=== PATIENT | female | born 1985 | race Caucasian/White ===

== ENCOUNTER 2017-02-11 10:04 | Emergency (ER) | payer BC, OTHER ==
[~2017-02-11] VITALS: Ht 157.5 cm; Wt 51.0 kg
[~2017-02-11 10:04] MED LIST: Z.0.BCPILL PO
[2017-02-11 10:22] VITALS: BP 141/102; PULSE 89; RESP 16; TEMP 98.3; O2SAT 100
--- NOTE | 2017-02-11 10:52 | PD ---
HPI Chief Complaint: Abdominal Pain Time Seen by Provider: 10:37 Travel History International Travel<30 days: No Contact w/Intl Traveler<30days: No Traveled to known affect area: No History of Present Illness HPI 31-year-old female complains of right low quadrant abdominal pain, abdominal bloating, and poor appetite. Patient started having left low quadrant abdominal pain about week ago. Patient was seen at local urgent care center and diagnosed with UTI. Patient was given prescription for Bactrim DS for 3 days. Patient states that she felt better and then started having right low quadrant abdominal pain right-sided pelvic pain for the past 3 days. Patient states that her menstruation period started 3 days ago and about to stop. Patient states abdominal pain is dull achy pain with occasionally sharp pain localized to right low quadrant right pelvic area. Patient states that the pain radiated to the back. Patient states that she has intermittent nausea vomiting with the pain. Patient denies any fever chills. Patient denies any dysuria or frequency. Patient denies any vaginal discharge. Patient states that she had unprotected sex on January 04 and took a Plan B on January 05. Patient states that she has irregular vaginal bleeding intermittent since then PFSH Past Medical History Diabetes: No Diminished Hearing: No Immunizations Current: No ?: Not Menopausal: No : 0 Past Surgical History Eye Surgery: Yes Tonsillectomy: Yes Other Surgery: Yes (r knee) Social History Alcohol Use: Yes (occasionally) Tobacco Use: No Substance Use: Yes Allergies-Medications (Allergen,Severity, Reaction): Coded Allergies: No Known Allergies (Unverified , 02/11/17) Reported Meds & Prescriptions Reported Meds & Active Scripts Active [place] (Hydrocodone-Acetaminophen) 5-325 mg Tab 1 Tab PO Q6H PRN Doxycycline Hyclate 100 Mg Tab 100 Mg PO BID Review of Systems General / Constitutional: No: Fever Eyes: No: Visual changes HENT: No: Headaches Cardiovascular: No: Chest Pain or Discomfort Respiratory: No: Shortness of Breath Gastrointestinal: Positive: Nausea, Vomiting, Abdominal Pain Genitourinary: No: Dysuria Musculoskeletal: No: Pain Skin: No Rash Neurologic: No: Weakness Psychiatric: No: Depression Endocrine: No: Polydipsia Hematologic/Lymphatic: No: Easy Bruising Physical Exam Narrative GENERAL: Well-nourished, well-developed patient. SKIN: Focused skin assessment warm/dry. HEAD: Normocephalic. EYES: No scleral icterus. No injection or drainage. NECK: Supple, trachea midline. No JVD or lymphadenopathy. CARDIOVASCULAR: Regular rate and rhythm without murmurs, gallops, or rubs. RESPIRATORY: Breath sounds equal bilaterally. No accessory muscle use. GASTROINTESTINAL: Abdomen soft, nondistended. Patient has mild to moderate tenderness on palpation right lower quadrant of her abdomen. No rebound tenderness. No mass. MUSCULOSKELETAL: No cyanosis, or edema. BACK: Nontender without obvious deformity. No CVA tenderness. CORPORATE FINANCIAL ANALYST exam: Patient has some moderate amount of old blood in the vaginal vault. No cervical motion tenderness. Uterus is nonenlarged mild tenderness on palpation. Mild to moderate tenderness on palpation right adnexal area . No adnexal mass. Neurologic exam normal. Data Data Last Documented VS Vital Signs Date Time Temp Pulse Resp B/P Pulse Ox O2 Delivery O2 Flow Rate FiO2 02/11/17 13:57 99 16 163/106 100 Room Air 02/11/17 10:22 98.3 Orders Complete Blood Count With Diff (02/11/17 10:46) Comprehensive Metabolic Panel (02/11/17 10:46) Prothrombin Time / Inr (Pt) (02/11/17 10:46) Act Partial Throm Time (Ptt) (02/11/17 10:46) Urinalysis - C+S If Indicated (02/11/17 10:46) Wet Prep Profile (02/11/17 10:46) Gc And Chlamydia Pcr (02/11/17 10:46) Ct Abd/Pel W Iv Contrast(Rout) (02/11/17 10:46) Iv Access Insert/Monitor (02/11/17 10:46) Ecg Monitoring (02/11/17 10:46) Oximetry (02/11/17 10:46) Morphine Inj (Morphine Inj) (02/11/17 11:45) Ondansetron Inj (Zofran Inj) (02/11/17 11:45) Iohexol 350 Inj (Omnipaque 350 Inj) (02/11/17 12:22) Beta Hcg (Quant/Titer) (02/11/17 13:47) Ceftriaxone Inj (Rocephin Inj) (02/11/17 16:00) Labs Laboratory Tests Test 02/11/17 02/11/1702/11/17 11:20 11:25 11:30 Urine Color YELLOW Urine Turbidity SLIGHT Urine pH 6.5 Urine Specific Ramsay 1.025 Urine Protein NEG mg/dL Urine Glucose (UA) NEG mg/dL Urine Ketones NEG mg/dL Urine Occult Blood MOD Urine Nitrite NEG Urine Bilirubin NEG Urine Leukocyte Esterase NEG Urine RBC 0-3 /hpf Urine WBC 0-2 /hpf Urine Squamous Epithelial 0-5 /hpf Cells Microscopic Urinalysis Comment CULT NOT INDICATED White Blood Count 6.8 TH/MM3 Red Blood Count 4.52 MIL/MM3 Hemoglobin 14.2 GM/DL Hematocrit 42.1 % Mean Corpuscular Volume 93.1 FL Mean Corpuscular Hemoglobin 31.4 PG Mean Corpuscular Hemoglobin 33.7 % Concent Red Cell Distribution Width 11.7 % Platelet Count 201 TH/MM3 Mean Platelet Volume 7.7 FL Neutrophils (%) (Auto) 60.5 % Lymphocytes (%) (Auto) 30.2 % Monocytes (%) (Auto) 6.9 % Eosinophils (%) (Auto) 1.6 % Basophils (%) (Auto) 0.8 % Neutrophils # (Auto) 4.1 TH/MM3 Lymphocytes # (Auto) 2.0 TH/MM3 Monocytes # (Auto) 0.5 TH/MM3 Eosinophils # (Auto) 0.1 TH/MM3 Basophils # (Auto) 0.1 TH/MM3 CBC Comment DIFF FINAL Differential Comment Prothrombin Time 10.5 SEC Prothromb Time International 1.0 RATIO Ratio Activated Partial 24.0 SEC Thromboplast Time Sodium Level 139 MEQ/L Potassium Level 4.0 MEQ/L Chloride Level 99 MEQ/L Carbon Dioxide Level 32.7 MEQ/L Anion Gap 7 MEQ/L Blood Urea Nitrogen 12 MG/DL Creatinine 0.75 MG/DL Estimat Glomerular Filtration 90 ML/MIN Rate Random Glucose 93 MG/DL Calcium Level 8.9 MG/DL Total Bilirubin 1.5 MG/DL Aspartate Amino Transf 165 U/L (AST/SGOT) Alanine Aminotransferase 126 U/L (ALT/SGPT) Alkaline Phosphatase 92 U/L Total Protein 8.4 GM/DL Albumin 4.6 GM/DL Human Chorionic Gonadotropin, LESS THAN 1 Quant MIU/ML Clue Cells (Wet Prep) NONE SEEN Vaginal Trichomonas (Wet Prep) NONE SEEN Vaginal Yeast (Wet Prep) NONE SEEN MDM Medical Decision Making Medical Screen Exam Complete: Yes Emergency Medical Condition: Yes Interpretation(s) Last Impressions Abdomen/Pelvis CT 02/11/17 1046 Signed Impressions: Service Date/Time: January 12:08 - CONCLUSION: 1. The exam demonstrates free fluid within the pelvis. There is a 1.2 cm cystic structure seen in the right adnexal region which may represent an ovarian cyst. There is also suggestion of a fluid filled tubular structure in the right adnexal region suggesting a hydrosalpinx or possibleTOA. This is difficult to assess secondary to the multiple loops of bowel and fluid within the pelvis. 2. The appendix is not definitively visualized however, I see no significant inflammatory changes at the base of the cecum. Rj Ratliff MD 1543 PM. CBC within normal limit. CMP within normal limits. Total bili 1.5. AST 165. ALT 126. Beta hCG negative. UA is negative. GC chlamydia PCR pending. Differential Diagnosis Differential diagnosis including cervicitis, PID, dysmenorrhea, ovarian cyst, ovarian torsion, ectopic , UTI, pyelonephritis, nephrolithiasis, colitis, appendicitis.. Narrative Course 31-year-old female with right low quadrant right pelvic pain. I spoke with ED OB on-call, Dr. Lyman. Advised Rocephin IV and doxycycline and pain medication and follow with local CORPORATE FINANCIAL ANALYST. Diagnosis Primary Impression: Tubal ovarian abscess Patient Instructions: General Instructions Additional Instructions: Take medications as directed. Follow-up local CORPORATE FINANCIAL ANALYST. Call back for culture results tomorrow. Return immediately if persistent pain worsening of condition or fever. Med/Other Pt SpecificInfo: Prescription(s) given Scripts Hydrocodone-Acetaminophen ([place])5-325 mg Tab1 Tab PO Q6H PRN (PAIN) #20 TAB Prov:Julio Box MD 02/11/17 Doxycycline Hyclate 100 Mg Rxq949 Mg PO BID #20 TAB Prov:Julio Box MD 02/11/17 Disposition: 01 DISCHARGE HOME Condition: Stable Julio Box MD Feb 11, 2017 10:52
[2017-02-11 11:42] LABS: AUTOMATED NEUTROPHIL # 4.1 TH/MM3 (1.8-7.7); BASOPHIL # 0.1 TH/MM3 (0-0.2); BASOPHIL % 0.8 % (0.0-2.0); EOSINOPHIL # 0.1 TH/MM3 (0-0.4); EOSINOPHIL % 1.6 % (0.0-4.0); HEMATOCRIT 42.1 % (35.0-46.0); HEMO FLAGS DIFF FINAL; LYMPH % 30.2 % (9.0-44.0); MEAN CELL VOLUME 93.1 FL (80.0-100.0); MEAN CORPUSCULAR HEMOGLOBIN 31.4 PG (27.0-34.0); MEAN CORPUSCULAR HGB CONC 33.7 % (32.0-36.0); MONO % 6.9 % (0.0-8.0); NEUT % 60.5 % (16.0-70.0); PLATELET COUNT 201 TH/MM3 (150-450); RED BLOOD COUNT 4.52 MIL/MM3 (4.00-5.30); RED CELL DISTRIBUTION WIDTH 11.7 % (11.6-17.2); WHITE BLOOD COUNT 6.8 TH/MM3 (4.0-11.0)
[2017-02-11] MEDS ORDERED: MORPHINE SULFATE 4 MG/ML INJ IV PUSH ONE (11:45)
[2017-02-11] MEDS ORDERED: ONDANSETRON HCL 4 MG/2 ML VIAL IV PUSH ONE (11:45)
[2017-02-11 11:52] LABS: GLUCOSE,URINE NEG (NEG); KETONE, URINE NEG (NEG); NITRITE,URINE NEG (NEG); PH, URINE 6.5 (5.0-8.5)
[2017-02-11 11:55] LABS: CHLORIDE 99 MEQ/L (98-107); SODIUM (NA) 139 MEQ/L (136-145)
[2017-02-11 11:58] LABS: BLOOD, URINE MOD (NEG)
[2017-02-11 11:59] LABS: ANION GAP 7 MEQ/L (5-15); BICARBONATE 32.7 MEQ/L (21.0-32.0); BLOOD UREA NITROGEN 12 MG/DL (7-18)
[2017-02-11 11:59] LABS: URINE COLOR YELLOW (YELLW/STRAW)
[2017-02-11 12:00] LABS: COMMENT (UR) CULT NOT INDICATED; CULTURE IF INDICATED CULT NOT INDICATED; RBC, URINE 0-3 /hpf (0-3); SQUAMOUS EPITHELIAL CELL URINE 0-5 /hpf (0-5); WBC, URINE 0-2 /hpf (0-5)
[2017-02-11 12:02] LABS: ALT (GPT) 126 U/L (10-53); AST (GOT) 165 U/L (15-37); GLOMERULAR FILTRATION RATE 90 ML/MIN (>89)
[2017-02-11 12:03] LABS: TOTAL BILIRUBIN ADULT 1.5 MG/DL (0.2-1.0)
[2017-02-11 12:05] LABS: ALKALINE PHOSPHATASE 92 U/L (45-117)
[2017-02-11 12:07] LABS: PROTHROMBIN TIME - PATIENT 10.5 SEC (9.8-11.6)
[2017-02-11] MEDS ORDERED: IOHEXOL 350 MG/ML 10 ML VIAL (for RAD DIAG) IV ONE (12:22)
--- NOTE | 2017-02-11 12:52 | RADHPO ---
EXAM DATE/TIME: 02/11/2017 12:08 [facility] COMPARISON: No previous studies available for comparison. INDICATIONS : Right lower quadrant pain. Abdominal distention. Nausea, vomiting and diarrhea. IV CONTRAST: 80 cc Omnipaque 350 (iohexol) IV ORAL CONTRAST: No oral contrast ingested. RADIATION DOSE: 4.73 CTDIvol (mGy) MEDICAL HISTORY : None SURGICAL HISTORY : Cholecystectomy. ENCOUNTER: Initial ACUITY: 3 days PAIN SCALE: 7/10 LOCATION: Right lower quadrant TECHNIQUE: Volumetric scanning of the abdomen and pelvis was performed. Using automated exposure control and ad justment of the mA and/or kV according to patient size, radiation dose was kept as low as reasonably achievable to obtain optimal diagnostic quality images. FINDINGS: The limited portion of the lung base visualized is clear. The appearance of the liver, spleen, pancreas, adrenal glands and kidneys is within normal limits. There is no free intraperitoneal air. No free intraperitoneal fluid is identified. There is no retrop eritoneal lymphadenopathy. The aorta is normal in caliber. The visualized loops of small and large bowel in the upper abdomen are normal in appearance. Imaging through the pelvis demonstrates free fluid within the dependent portion of the pelvis. Note i s made of a dilated, tubular structure within the left pelvis. This may represent a hydrosalpinx. The visualized loops of small large bowel the pelvis are unremarkable. The appendix is not definitive ly visualized. I do not see definite inflammatory changes involving the cecum. The visualized osseous structures are intact. CONCLUSION: 1. The exam demonstrates free fluid within the pelvis. There is a 1.2 cm cystic structure seen in the right adnexal region which may represent an ovarian cyst. There is also suggestion of a fluid filled tubular structure in the right adnexal region suggesting a hydrosalpinx or possibleTOA. This is diff icult to assess secondary to the multiple loops of bowel and fluid within the pelvis. 2. The appendix is not definitively visualized however, I see no significant inflammatory changes at the base of the cecum. Rj Ratliff MD on February 11, 2017 at 12:46 Board Certified Radiologist. This report was verified electronically.
[2017-02-11 13:57] VITALS: BP 163/106; PULSE 99; RESP 16; O2SAT 100
[2017-02-11 14:08] LABS: BETA HCG QUANT LESS THAN 1 MIU/ML (0-5)
[2017-02-11] MEDS ORDERED: NORC5TAB PO (15:48)
[2017-02-11] MEDS ORDERED: DOXY100T PO (15:48)
[2017-02-11] MEDS ORDERED: cefTRIAXone INJ 1,000 MG in SODIUM CHLORIDE 0.9% INJ 100 ML IV ONE (16:00)
[2017-02-11 17:17] VITALS: BP 110/72
[2017-02-11 18:37] LABS: CHLAMYDIA PCR NOT DETECTED (NOT DETECT); NEISSERIA PCR NOT DETECTED (NOT DETECT)
== END 2017-02-11 17:18 | disposition home or self-care (01) ==
LOC: PHED 10:04
DX: N70.93 Salpingitis and oophoritis, unspecified (principal)
CPT/HCPCS: 74177; 80053; 81001; 84702; 85025; 85610; 85730; 87210; 87491; 87591; 96365; 96375; 99285; J0696; J2270; J2405; Q9967

== ENCOUNTER 2017-05-06 21:12 | Emergency (ER) | payer OTHER ==
[~2017-05-06] VITALS: Ht 157.5 cm; Wt 47.7 kg
[~2017-05-06 21:12] MED LIST changes: +DOXY100T PO; +NORC5TAB PO; -Z.0.BCPILL PO
[2017-05-06 21:25] VITALS: BP 142/87; PULSE 98; RESP 18; TEMP 98.3; O2SAT 98
[2017-05-06] MEDS ORDERED: Birth control pill PO (21:26)
[2017-05-06] MEDS ORDERED: oxyCODONE/ACETAMINOPHEN 5 MG/325 MG TAB PO ONE (21:45)
--- NOTE | 2017-05-06 22:08 | PD ---
HPI Chief Complaint: Injury Time Seen by Provider: 21:36 Travel History International Travel<30 days: No Contact w/Intl Traveler<30days: No Traveled to known affect area: No History of Present Illness HPI Patient is a 32-year-old female who comes in complaining of left knee pain. She was performing kick in a martial arts studio when the leg she was standing on twisted and she fell onto her buttocks. She complains of severe pain to that knee and is unable to bend or straighten it on her own. She has not taken anything for pain. She denies any other injuries. PFS Past Medical History Medical History: Denies Significant Hx Diabetes: No Diminished Hearing: No Immunizations Current: No Tetanus Vaccination: > 5 Years Influenza Vaccination: No ?: Not LMP: Now Menopausal: No : 0 Past Surgical History Cholecystectomy: Yes Eye Surgery: Yes Tonsillectomy: Yes Other Surgery: Yes (Lt. knee) Social History Alcohol Use: Yes (Occ.) Tobacco Use: No Substance Use: No Allergies-Medications (Allergen,Severity, Reaction): Coded Allergies: No Known Allergies (Unverified , 05/06/17) Reported Meds & Prescriptions Reported Meds & Active Scripts Active Reported [ control pill] 1 Tab PO DAILY Review of Systems General / Constitutional: No: Fever, Chills HENT: No: Headaches, Lightheadedness Cardiovascular: No: Chest Pain or Discomfort Respiratory: No: Shortness of Breath Gastrointestinal: No: Nausea, Vomiting Musculoskeletal: Positive: Limited ROM, Pain Skin: No Rash, No Change in Pigmentation Neurologic: No: Weakness, Dizziness Physical Exam Narrative GENERAL: Awake and alert, in no acute distress. SKIN: Focused skin assessment warm/dry. HEAD: Atraumatic. Normocephalic. EYES: Pupils equal and round. No scleral icterus. ENT: Mucous membranes pink and moist. CARDIOVASCULAR: Regular rate and rhythm. No murmur appreciated. RESPIRATORY: No accessory muscle use. Clear to auscultation. Breath sounds equal bilaterally. MUSCULOSKELETAL: Left patella seems to be deviated laterally. The joint is very lax. Unable to flex or extend the left knee on her own. Pedal pulses intact. NEUROLOGICAL: Awake and alert. No obvious cranial nerve deficits. Motor grossly within normal limits. Normal speech. Sensation intact. Data Data Last Documented VS Vital Signs Date Time Temp Pulse Resp B/P (MAP) Pulse Ox O2 Delivery O2 Flow Rate FiO2 05/06/17 21:25 98.3 98 18 142/87 (105) 98 Orders Orders Oxycodone-Acetamin 5-325 Mg (Percocet (05/06/17 21:45) Knee, Complete (4vws) (05/06/17 ) Morphine Inj (Morphine Inj) (05/06/17 22:45) ^ Knee Immobilizer (05/06/17 22:44) MDM Medical Decision Making Medical Screen Exam Complete: Yes Emergency Medical Condition: Yes Differential Diagnosis Knee fracture versus knee sprain versus ACL tear versus patella dislocation Narrative Course Patient is a 32-year-old female who comes in complaining of pain to her left knee after she twisted it performing a martial arts move. Exam shows joint laxity as well as deformity of the patella. Patient given 2 Percocet. X-ray of the knee obtained. X-ray shows no evidence of bony abnormality. Patient likely has a ligamentous injury. She is placed in a knee immobilizer and given crutches. Advised follow -up with orthopedics for further management. Give prescription for pain medicine. Advised to return to the ED as needed for any worsening symptoms. Diagnosis Primary Impression: Knee sprain Qualified Codes: S83.92XA - Sprain of unspecified site of left knee, initial encounter Referrals: Jeffery Orr MD call for appointment Patient Instructions: General Instructions, Knee Immobilizer (ED), Knee Sprain (ED) Additional Instructions: Follow-up with orthopedics as soon as possible. Take pain medicine as needed as well as ibuprofen to help with inflammation. Apply ice frequently to reduce swelling. Wear the knee immobilizer for stabilization. Return to the ED as needed for any worsening symptoms. Scripts Oxycodone-Acetaminophen (Percocet) 10-325 mg Tab 1 TAB PO Q6H Y for PAIN, #12 TAB 0 Refills Prov: Ruba Santana MD 05/06/17 Disposition: 01 DISCHARGE HOME Condition: Stable Ruba Santana MD May 06, 2017 22:08
--- NOTE | 2017-05-06 22:23 | RADRPT ---
EXAM DATE/TIME: 05/06/2017 22:01 This report includes an Addendum and supersedes previous reports for this exam. [facility] COMPARISON: No previous studies available for comparison. INDICATIONS : felt knee pop while wrestling tonight. Pain in entire knee. MEDICAL HISTORY : None. SURGICAL HISTORY : Cholecystectomy. ENCOUNTER: Initial ACUITY: 1 day PAIN SCORE: 5/10 LOCATION: Left Knee FINDINGS: Four view examination of the left knee demonstrates no evidence of fracture or dislocation. Bony min eralization is normal. The articular surfaces are intact. Large suprapatellar effusion. CONCLUSION: 1. Large suprapatellar effusion may be indicative of internal derangement. 2. No fracture or degenerative changes. Javier Chapa MD on May 06, 2017 at 22:21 Board Certified Radiologist. This report was verified electronically. ADDENDUM: The patella is laterally dislocated. Hunter Cruz MD on May 13, 2017 at 11:54 Board Certified Radiologist. This report was verified electronically.
[2017-05-06] MEDS ORDERED: MORPHINE SULFATE 8 MG/ML INJ IM ONE (22:45)
[2017-05-06] MEDS ORDERED: PERC10TA27 PO (22:48)
[2017-05-06 23:15] VITALS: RESP 18
[2017-05-06 23:35] VITALS: BP 136/82
== END 2017-05-06 23:36 | disposition home or self-care (01) ==
LOC: PHEFT 21:12
DX: S83.92XA Sprain of unspecified site of left knee, initial encounter (principal); X50.1XXA Overexertion from prolonged static or awkward postures, initial encounter; Y93.75 Activity, martial arts; Y99.8 Other external cause status
CPT/HCPCS: 73564; 96372; 99284; E0113; J2270; L1830